=== PATIENT | male | born 1980 | race Caucasian/White ===

== ENCOUNTER 2023-08-09 10:27 | Emergency (ER) | payer OTHER ==
[~2023-08-09] VITALS: Ht 180.3 cm; Wt 99.8 kg
[2023-08-09 10:34] VITALS: BP 139/100
== END 2023-08-09 11:05 | disposition home or self-care (01) ==
LOC: ER 10:27
DX: S61.512A Laceration without foreign body of left wrist, initial encounter (principal); W26.0XXA Contact with knife, initial encounter
CPT/HCPCS: 12001; 99282-25